=== PATIENT | female | born 1985 | race American Indian/Alaskan Native ===

== ENCOUNTER 2016-12-10 20:21 | Outpatient (CLI) | payer MEDICAID ==
[2016-12-10] MEDS ORDERED: LACTATED RINGERS 1,000 ML ONE (21:00)
[2016-12-10] MEDS ORDERED: LACTATED RINGERS 1,000 ML IV ONE (21:01)
[2016-12-10 21:18] LABS: Bilirubin,Urine NEG (Negative); Blood,Urine NEG (Negative); Ketones,Urine TR mg/dL (Negative); Leukocyte Esterase,Urine NEG (Negative); Mucus,Urine 1+ /HPF; Nitrite,Urine NEG (Negative); WBC,Urine < 1.0 /HPF (0.0-6.0)
[2016-12-10] MEDS ORDERED: BRETHINE SUB-Q ONE (22:20)
[2016-12-10 22:24] VITALS: BP 166/66
[2016-12-10] MEDS ORDERED: BRETHINE ONE (22:53)
[2016-12-10] MEDS ORDERED: LACTATED RINGERS 1,000 ML IV SCH (23:00)
== END 2016-12-10 23:55 | disposition home or self-care (01) ==
LOC: TRG 20:21
PROVIDERS: ATTEND Obstetrics & Gynecology
DX: O77.9 Labor and delivery complicated by fetal stress, unspecified (principal); O47.9 False labor, unspecified; Z3A.00 Weeks of gestation of pregnancy not specified
CPT/HCPCS: 59025; 81001; 96360; 96372; J3105; J7120

== ENCOUNTER 2016-12-19 13:08 | Outpatient (CLI) | payer MEDICAID ==
[2016-12-19 13:46] VITALS: BP 108/65
[2016-12-19] MEDS ORDERED: LACTATED RINGERS 1,000 ML IV ONE (13:48)
[2016-12-19] MEDS ORDERED: ZOFRAN IV ONE (13:51)
== END 2016-12-19 15:30 | disposition home or self-care (01) ==
LOC: TRG 13:08
PROVIDERS: ATTEND Obstetrics & Gynecology
DX: O77.9 Labor and delivery complicated by fetal stress, unspecified (principal); O47.03 False labor before 37 completed weeks of gestation, third trimester; Z3A.29 29 weeks gestation of pregnancy
CPT/HCPCS: 59025; 96360; J2405; J7120